=== PATIENT | male | born 1975 | race American Indian/Alaskan Native ===

== ENCOUNTER 2021-08-26 21:22 | Emergency (ER) | payer SELFPAY ==
[2021-08-26] MEDS ORDERED: LIDOCAINE-MPF (1%) 10 MG/1 ML VIAL 5 ML INFILTRATI ONE (22:20)
[2021-08-26] MEDS ORDERED: traMADol 50 MG TAB PO ONE (22:45)
[2021-08-26] MEDS ORDERED: cephALEXin 500 MG CAP PO ONE (22:45)
--- NOTE | 2021-08-26 22:49 | Emergency Department Report ---
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 Patient states he was biting a hangnail and fingertip got infected. There is no fever chills no nausea or vomiting no history of diabetes. Pain is described as throbbing 6/10 exacerbated by palpation and movement. Symptoms are relieved by nothing tried. She has no known drug allergies. Last tetanus 3 years ago. - Related Data Previous Rx's Medication Instructions Recorded Last Taken Type cephALEXin [Keflex] 500 mg PO Q8HR 7 Days #21 cap 08/26/21 Unknown Rx traMADoL [Ultram] 50 mg PO Q6HR PRN #12 tablet 08/26/21 Unknown Rx ED Review of Systems ROS: Stated complaint: INFECTED FINGER Other details as noted in HPI Constitutional: denies: chills, fever Eyes: denies: eye pain, eye discharge, vision change ENT: denies: ear pain, throat pain Respiratory: denies: cough, shortness of breath, wheezing Cardiovascular: denies: chest pain, palpitations Endocrine: no symptoms reported Gastrointestinal: denies: abdominal pain, nausea, vomiting, diarrhea Genitourinary: denies: urgency, dysuria Musculoskeletal: denies: back pain, joint swelling, arthralgia Skin: other (Swelling and erythema to the right middle finger tip). denies: rash, lesions Neurological: denies: headache, weakness, paresthesias Psychiatric: as per HPI Hematological/Lymphatic: denies: easy bleeding, easy bruising ED Past Medical Hx - Past Medical History Previous Medical History?: No - Surgical History Past Surgical History?: No - Medications Home Medications: Home Medications Medication Instructions Recorded Confirmed Last Taken Type cephALEXin [Keflex] 500 mg PO Q8HR 7 Days #21 cap 08/26/21 Unknown Rx traMADoL [Ultram] 50 mg PO Q6HR PRN #12 tablet 08/26/21 Unknown Rx ED Physical Exam - General Limitations: No Limitations General appearance: alert, in no apparent distress - Head Head exam: Present: atraumatic, normocephalic - Eye Eye exam: Present: normal appearance, EOMI Pupils: Present: normal accommodation - ENT ENT exam: Present: mucous membranes moist - Neck Neck exam: Present: normal inspection, full ROM. Absent: tenderness - Respiratory Respiratory exam: Present: normal lung sounds bilaterally. Absent: respiratory distress, wheezes - Cardiovascular Cardiovascular Exam: Present: regular rate, normal rhythm. Absent: systolic murmur, diastolic murmur, rubs, gallop - GI/Abdominal GI/Abdominal exam: Present: soft, normal bowel sounds. Absent: distended, tenderness - Rectal Rectal exam: Present: deferred - Extremities Exam Extremities exam: Present: full ROM - Expanded Upper Extremity Exam Right Hand Wrist exam: Present: tenderness (Right distal middle finger), other (Right finger tip erythema swelling). Absent: nail avulsion, subungual hematoma Neuro motor exam: Present: wrist extension intact, thumb opposition intact, thumb IP flexion intact, thumb adduction intact, fingers 2-5 abduction intact - Back Exam Back exam: Present: normal inspection, full ROM. Absent: tenderness - Neurological Exam Neurological exam: Present: alert, oriented X3, CN II-XII intact, normal gait - Psychiatric Psychiatric exam: Present: normal affect - Skin Skin exam: Present: warm, dry, intact, normal color. Absent: rash ED Course Vital Signs 08/26/21 21:57 Temperature 98.3 F Pulse Rate 85 Respiratory 18 Rate Blood Pressure 128/88 [Right] O2 Sat by Pulse 98 Oximetry - I & D Right Distal Finger Type of Procedure: Simple Site: Right middle finger paronychia for I&D Blade Size: 11 I & D Procedure: betadine prep, sterile drapes applied, sterile dressing applied Progress: Right middle finger paronychia site cleaned with Betadine solution, anesthesia with 1% lidocaine via digital block anesthesia is achieved, incision with 11 blade scalpel approximately 1 cm with moderate purulent output. Irrigated with 10 cc sterile saline pain is relieved, sterile dressing applied, patient given aftercare instructions all bleeding is controlled sterile dressing is applied. Pulses remain intact [employer] remains less than 3 seconds bilateral. Patient tolerated procedure with minimal distress. ED Medical Decision Making - Medical Decision Making Paronychia right distal little finger. See procedure note, all bleeders controlled, patient will be DC'd home with prescriptions. Patient verbalized agreement understanding discharge plan. We'll follow-up PCP in 2 days for wound check. Return to ED if symptoms worsen. At home stable condition at this time. Critical care attestation.: If time is entered above; I have spent that time in minutes in the direct care of this critically ill patient, excluding procedure time. ED Disposition Clinical Impression: Paronychia of right middle finger Disposition: HOME / SELF CARE / HOMELESS Is pt being admited?: No Does the pt Need Aspirin: No Condition: Stable Instructions: Cellulitis, Adult, Paronychia, [id number] Additional Instructions: Soap and water daily, use [id number] Neosporin, take medications as prescribed, return to emergency department if symptoms worsen. Follow-up with your doctor in 2 days for wound check symptoms of infection as discussed and agree. Prescriptions: cephALEXin [Keflex] 500 mg PO Q8HR 7 Days #21 cap traMADoL [Ultram] 50 mg PO Q6HR PRN #12 tablet PRN Reason: Pain Referrals: SARA [facility] MD [Staff Physician] - 3-5 Days Forms: Work/School Release Form(ED) Time of Disposition: 22:51
[2021-08-26 23:21] VITALS: BP 138/99
== END 2021-08-26 22:57 | disposition home or self-care (01) ==
LOC: ED 21:22
DX: L03.011 Cellulitis of right finger (principal)
CPT/HCPCS: 99282